=== PATIENT | male | born 1940 | race Caucasian/White ===

== ENCOUNTER 2017-05-21 12:00 | Observation (INO) | payer OTHER ==
[2017-05-21] MEDS: SODIUM CHLORIDE 0.9% 1L BAG IV* (14:07)
[2017-05-21 14:08] LABS: ADD MAN DIFF? NO
[2017-05-21 14:11] LABS: ABNORMAL IP MESSAGE 1; BASOPHILS % 0.3 % (0.0-2.0); EOSINOPHILS % 0.1 % (0.0-7.0); HEMATOCRIT 38.5 % (42.0-52.0); HEMOGLOBIN 12.6 g/dl (14.0-18.0); LYMPHOCYTES # 0.1 10^3/ul (0.8-2.9); LYMPHOCYTES % 1.7 % (15.0-51.0); MEAN CORPUSCULAR HEMOGLOBIN 28.7 pg (29.0-33.0); MEAN CORPUSCULAR HGB CONC 32.7 g/dl (32.0-37.0); MEAN CORPUSCULAR VOLUME 87.7 fl (82.0-101.0); MEAN PLATELET VOLUME 11.8 fl (7.4-10.4); MONOCYTE # 0.1 10^3/ul (0.3-0.9); MONOCYTES % 0.9 % (0.0-11.0); NEUTROPHIL # 7.5 10^3/ul (1.6-7.5); PLATELET COUNT 119 10^3/UL (140-415); POSITIVE DIFF @See below; RED BLOOD COUNT 4.39 10^6/ul (4.70-6.10); RED CELL DISTRIBUTION WIDTH 12.1 % (11.5-14.5)
[2017-05-21 14:11] LABS: WHITE BLOOD COUNT 7.7 10^3/ul (4.8-10.8)
[2017-05-21] MEDS: CEFEPIME 2GM/50 ML (PMX) 50 ML IVPB (14:22)
[2017-05-21 14:27] LABS: NEUTROPHILS % 96.6 % (39.0-77.0)
[2017-05-21 14:32] LABS: INR 1.01; PROTIME 13.4 Sec (11.9-14.9)
[2017-05-21 14:33] LABS: PARTIAL THROMBOPLASTIN TIME 35.4 Sec (25.0-35.0)
[2017-05-21 14:34] LABS: LACTIC ACID 1.7 mmol/L (0.5-2.0)
[2017-05-21 14:35] LABS: ALANINE AMINOTRANSFERASE 53 IU/L (13-69); ALBUMIN 3.6 g/dl (3.3-4.9); ALBUMIN/GLOBULIN RATIO 1.16; ALKALINE PHOSPHATASE 114 IU/L (42-121); ASPARTATE AMINO TRANSFERASE 58 IU/L (15-46); BILIRUBIN,INDIRECT 0.6 mg/dl (0-1.1); BILIRUBIN,TOTAL 0.6 mg/dl (0.2-1.3); BLOOD UREA NITROGEN 13 mg/dl (7-20); CALCIUM 8.7 mg/dl (8.4-10.2); CARBON DIOXIDE 26 mmol/L (21-31); CHLORIDE 101 mmol/L (97-110); CREATININE 0.92 mg/dl (0.61-1.24); GLUCOSE 93 mg/dl (70-220); SODIUM 137 mmol/L (135-144); TOTAL PROTEIN 6.7 g/dl (6.1-8.1)
[2017-05-21 14:41] LABS: ADD UMIC NO; UR ASCORBIC ACID NEGATIVE (NEGATIVE); UR BILIRUBIN (Dip) NEGATIVE (NEGATIVE); UR BLOOD (Dip) NEGATIVE (NEGATIVE); UR CLARITY CLEAR (CLEAR); UR COLOR YELLOW (YELLOW); UR GLUCOSE (Dip) NEGATIVE (NEGATIVE); UR KETONES (Dip) 1+ mg/dL (NEGATIVE); UR LEUKOCYTE ESTERASE (Dip) NEGATIVE Leu/ul (NEGATIVE); UR NITRITE (Dip) NEGATIVE (NEGATIVE); UR SPECIFIC GRAVITY (Dip) 1.012 (1.003-1.030); UR TOTAL PROTEIN (Dip) NEGATIVE (NEGATIVE); UR UROBILINOGEN (Dip) NEGATIVE (NEGATIVE)
[2017-05-21 14:46] LABS: TROPONIN-I 0.104 ng/ml (0.00-0.12)
[2017-05-21 14:47] LABS: ANION GAP 13 (8-16); POTASSIUM 3.4 mmol/L (3.5-5.1)
[2017-05-21 15:48] LABS: BAND NEUTROPHILS #M 3.4 10^3/ul (0.0-0.6); BAND NEUTROPHILS % (M) 45 % (0-4); METAMYELOCYTES #M 0.3 10^3/ul (0.0-0.0); METAMYELOCYTES %M 5 % (0-0); MONOCYTE #M 0.2 10^3/ul (0.3-0.9); MONOCYTES % (M) 3 % (0-11); PLATELET ESTIMATE DECREASED; SEG NEUT #M 3.9 10^3/ul (1.7-7.5); SEGMENTED NEUTROPHILS (M) % 47 % (39-77); SMUDGE%M 1 % (0-0)
[2017-05-21] MEDS ORDERED: morphine 10 MG INJ IV (16:00)
[2017-05-21] MEDS: morphine 4 MG/ML VIAL IV (16:47)
[2017-05-21 18:22] LABS: CREATINE KINASE 301 IU/L (23-200)
[2017-05-21 18:29] LABS: LACTIC ACID 2.1 mmol/L (0.5-2.0)
[2017-05-21] MEDS: ONDANSETRON 4 MG INJ IV (20:17)
[2017-05-21] MEDS: METOCLOPRAMIDE 10 MG INJ IV (20:17)
[2017-05-21 20:47] LABS: LACTIC ACID 2.1 mmol/L (0.5-2.0)
[2017-05-21] MEDS ORDERED: ACETAMINOPHEN 325 MG TAB PO (23:00)
[2017-05-21] MEDS ORDERED: ONDANSETRON 4 MG INJ IV (23:00)
[2017-05-21] MEDS: LIDOCAINE 2% JELLY 30 ML TOP (23:40)
[2017-05-22] MEDS ORDERED: morphine LIQ (10 MG/5 ML) CUP PO (01:30)
[2017-05-22] MEDS ORDERED: ONDANSETRON 4 MG INJ IV (01:30)
[2017-05-22] MEDS: SOD CHLORIDE 0.9% 1,000 ML IV ×3 (01:48→21:30)
[2017-05-22 05:29] LABS: ADD MAN DIFF? NO
[2017-05-22 05:39] LABS: WHITE BLOOD COUNT 11.3 10^3/ul (4.8-10.8)
[2017-05-22 05:39] LABS: BASOPHILS % 0.2 % (0.0-2.0); EOSINOPHILS % 0.1 % (0.0-7.0); HEMATOCRIT 34.2 % (42.0-52.0); HEMOGLOBIN 11.2 g/dl (14.0-18.0); LYMPHOCYTES # 0.8 10^3/ul (0.8-2.9); LYMPHOCYTES % 6.6 % (15.0-51.0); MEAN CORPUSCULAR HEMOGLOBIN 28.9 pg (29.0-33.0); MEAN CORPUSCULAR HGB CONC 32.7 g/dl (32.0-37.0); MEAN CORPUSCULAR VOLUME 88.1 fl (82.0-101.0); MEAN PLATELET VOLUME 12.2 fl (7.4-10.4); MONOCYTE # 0.7 10^3/ul (0.3-0.9); MONOCYTES % 5.9 % (0.0-11.0); NEUTROPHIL # 9.8 10^3/ul (1.6-7.5); NEUTROPHILS % 86.8 % (39.0-77.0); PLATELET COUNT 117 10^3/UL (140-415); POSITIVE DIFF @See below; RED BLOOD COUNT 3.88 10^6/ul (4.70-6.10); RED CELL DISTRIBUTION WIDTH 12.6 % (11.5-14.5)
[2017-05-22 06:31] LABS: ALANINE AMINOTRANSFERASE 52 IU/L (13-69); ALBUMIN 3.2 g/dl (3.3-4.9); ALBUMIN/GLOBULIN RATIO 1.28; ALKALINE PHOSPHATASE 73 IU/L (42-121); ANION GAP 10 (8-16); ASPARTATE AMINO TRANSFERASE 52 IU/L (15-46); BILIRUBIN,INDIRECT 0.4 mg/dl (0-1.1); BILIRUBIN,TOTAL 0.4 mg/dl (0.2-1.3); BLOOD UREA NITROGEN 14 mg/dl (7-20); CALCIUM 8.5 mg/dl (8.4-10.2); CARBON DIOXIDE 25 mmol/L (21-31); CHLORIDE 109 mmol/L (97-110); GLUCOSE 121 mg/dl (70-220); MAGNESIUM 2.1 mg/dl (1.7-2.5); PHOSPHORUS 3.3 mg/dl (2.5-4.9); POTASSIUM 3.6 mmol/L (3.5-5.1); SODIUM 140 mmol/L (135-144); TOTAL PROTEIN 5.7 g/dl (6.1-8.1)
[2017-05-22 08:51] LABS: C-REACTIVE PROTEIN 6.6 mg/dl (0.0-0.9)
[2017-05-22 09:18] LABS: ERYTHROCYTE SEDIMENTATION RATE 10 mm/Hr (0-20)
[2017-05-22] MEDS: ACETAMINOPHEN 325 MG TAB PO (13:32)
[2017-05-22] MEDS: HYDROCODONE/APAP (5/325) TAB PO (16:43)
[2017-05-22] MEDS: PIPER-TAZO 3.375 GM IV (PMX) 50 ML IVPB (18:07)
[2017-05-22] MEDS: POLYETHYLENE GLYCOL 17 GM PACKET GTB (20:05)
[2017-05-23] MEDS: SOD CHLORIDE 0.9% 1,000 ML IV (01:21)
[2017-05-23] MEDS: HYDROCODONE/APAP (5/325) TAB PO ×2 (01:21→15:56)
[2017-05-23] MEDS: PIPER-TAZO 3.375 GM IV (PMX) 50 ML IVPB ×3 (02:11→17:16)
[2017-05-23] MEDS: POLYETHYLENE GLYCOL 17 GM PACKET GTB (09:49)
[2017-05-23] MEDS ORDERED: PRAMOXINE 1% 15 GM RECT FOAM PR (13:00)
== END 2017-05-23 19:00 | disposition home or self-care (01) ==
LOC: PP2 22:57 → E/R 12:00
DX: R65.10 Systemic inflammatory response syndrome (SIRS) of non-infectious origin without acute organ dysfunction (principal); M79.662 Pain in left lower leg; M79.661 Pain in right lower leg; K64.9 Unspecified hemorrhoids
CPT/HCPCS: 36415; 71010; 74176; 80053; 81003; 82550; 83605; 83735; 84100; 84484; 85025; 85610; 85651; 85730; 86140; 87040; 87086; 87400; 93005; 96374; 96375; 99285-25; G0378